=== PATIENT | female | born 1975 | race Caucasian/White ===

== ENCOUNTER 2025-10-11 08:15 | Outpatient (CLI) | payer BC ==
[2025-10-11] MEDS ORDERED: Iopamidol 370 76% 100 ML VIAL ONE (11:36)
== END 2025-10-11 08:16 | disposition home or self-care (01) ==
LOC: CSHCT 08:15
PROVIDERS: ATTEND Internal Medicine Hematology & Oncology
DX: C18.2 Malignant neoplasm of ascending colon (principal); D70.8 Other neutropenia; Z90.49 Acquired absence of other specified parts of digestive tract; R93.5 Abnormal findings on diagnostic imaging of other abdominal regions, including retroperitoneum
CPT/HCPCS: 71260; 74177; Q9967